=== PATIENT | male | born 1985 | race Hispanic/Latino ===

== ENCOUNTER 2018-10-08 06:06 | Day surgery (SDC) | payer OTHER, SELFPAY ==
[2018-09-24 13:57] VITALS: BMI 32.8
[2018-10-08] VITALS (28 sets, daily range): BP systolic 111–147; BP diastolic 36–103; PULSE 52–100; RESP 9–18; TEMP 36.2–37.5; O2SAT 89–99; BMI 32.8
--- NOTE | 2018-10-08 | DI.RAD.S_ITS ---
PROCEDURE: XR KNEE RT 1TO2V INDICATIONS: Opening wedge ostotomy TECHNIQUE: One operative view of the knee acquired. COMPARISON: None. FINDINGS: Bones: Tibial osteotomy with plate and screw fixation of the proximal tibia on both sides of the osteotomy. No radiographic evidence of complications. No fractures or dislocations. No suspicious bony lesions. Soft tissues: Expected intraoperative appearance. IMPRESSION: Imaging utilized during right tibial osteotomy procedure. Dictated by: Beto River M.D. on 10/08/2018 at 12:17 Approved by: Beto River M.D. on 10/08/2018 at 12:21
--- NOTE | 2018-10-08 | DI.RAD.S_ITS ---
PROCEDURE: XR KNEE RT 1TO2V INDICATIONS: OPENING WEDGE OSTEOTOMY, HIGH TIBIAL TECHNIQUE: 2 views of the knee were acquired. COMPARISON: None. FINDINGS: Bones: No fractures or dislocations. No suspicious bony lesions. There is expected postoperative appearance after opening wedge osteotomy in this patient who has postoperative changes of prior ACL. Moderate osteoarthritis at the medial compartment of the right knee is present as indicated by medial compartment joint space narrowing Soft tissues: No joint effusion. No suspicious soft tissue calcifications. IMPRESSION: Prior ACL, moderate medial compartment knee joint osteoarthritis. Expected postoperative appearance after opening wedge osteotomy proximal tibia at the metadiaphyseal junction with medial fixation plate and 4 fixation screws maintaining normal position during healing. Dictated by: Alex Cuellar M.D. on 10/08/2018 at 10:32 Approved by: Alex Cuellar M.D. on 10/08/2018 at 10:33
[2018-10-08] MEDS: CELECOXIB 200 MG CAPSULE PO (06:51)
[2018-10-08] MEDS: PREGABALIN 75 MG CAPSULE PO (06:51)
[2018-10-08] MEDS: ACETAMINOPHEN 325 MG TABLET 975 MG PO ×3 (06:51→20:57)
[2018-10-08] MEDS: LACTATED RINGERS 1,000 ML 42 ML IV ×2 (07:05→10:10)
--- NOTE | 2018-10-08 07:38 | PM.PREOP ---
Pre-operative Note Interval Note History & Physical reviewed/Exam performed by Physician: Yes Changes to H&P: No
[2018-10-08] MEDS: MIDAZOLAM 2 MG/2 ML VIAL IV (07:40)
--- NOTE | 2018-10-08 07:52 | SUR.PREOP ---
Block start time [0740] . Monitoring initiated and maintained throughout procedure. Oxygen and medications given per anesthesiologist instructions. Patient remained stable throughout procedure, no adverse reactions noted. Block end time [0748].
[2018-10-08] MEDS: CEFAZOLIN 2 GM/100 ML FROZ.PIGGY IV (07:53)
--- NOTE | 2018-10-08 08:28 | SUR.OPER ---
Supine on padded OR bed, head on pillow, arms secured on padded arm boards at <90 degrees abduction, legs uncrossed, safety belt at waist, tape over blanket over left lower leg. Right leg under control of surgeon.
[2018-10-08] MEDS: BUPIVACAINE 0.5% W/ EPI (PF) VIAL 30 ML INJ (08:40)
[2018-10-08] MEDS: HYDROMORPHONE 2 MG INJ 0.5 MG IV ×8 (09:35→11:26)
--- NOTE | 2018-10-08 09:48 | P.OP_ITS ---
Operative Date/Time/Diagnoses Date of procedure: 10/08/18 Time of procedure: 09:15 Pre-op diagnosis: Right knee osteoarthritis Post-op diagnosis: same Procedure & Clinicians Procedure: Right high tibial osteotomy Same procedure as scheduled: Yes Indications: The patient is a 32-year-old gentleman who has previously undergone an a right knee anterior cruciate ligament reconstruction. He has gone on to develop significant medial compartment post traumatic osteoarthritis. There is some arthritic change in the lateral compartment but in order to try to avoid total knee replacement he has elected to proceed with a high tibial osteotomy to transfer the weight to the lateral compartment. He has agreed to this procedure after discussion the risks benefits and alternatives. Risks discussed included but were not limited to: Failure to relieve pain, nerve or significant vascular damage, infection, failure of healing of the osteotomy, stiffness, deep venous thrombosis, pulmonary embolism, stroke, myocardial infarction, permanent paralysis and . Surgeon: Isidro Walters Pinking Sewing Machine Operator: Hanna Chavira Click Yes if Unassisted: No Anesthesia Type: General, Peripheral nerve block and Local Operative Notes Findings: Appropriate transfer of weight-bearing line into the medial 3rd of the lateral compartment Closure Type: primary Specimen(s): none sent Prosthetic devices, grafts, tissues, transplants, or devices: Arthrex 12.5 mm opening wedge osteotomy plate with 4 Synthes large fragment cortical screws. Osferon bone substitute wedges. Applied: implant(s) Estimated Blood Loss (mL): 50 Blood products transfused: platelets Tourniquet time (min): 46 Procedure in detail: The patient was seen the preoperative area where he identified the right knee as the operative site and this was marked with my initials. He received preoperative antibiotics in and regional nerve block. He was then taken to the operating room and placed on the operating room table in the supine position where he underwent a general anesthetic. A tourniquet was placed about his proximal right thigh. His right leg was prepared from the toes to the tourniquet with ChloraPrep and drape through sterile drapes. A part time receptionist-out was performed prior to prepping and draping. In addition we confirmed that we could see from the hip joint to the ankle with fluoroscopy prior to draping. The leg was elevated and exsanguinated with the Esmarch bandage and the tourniquet inflated to 250 mm of mercury. An approximately 8 cm incision was created over the proximal medial tibia including the prior ACL scar. This was carried to the periosteum which was elevated from the bone with electrocautery. Using fluoroscopic guidance the cutting guide was placed angling the cut from the middle of the tibial tubercle up towards the fibular head laterally. The cutting guide was placed parallel to the tibial plateau. Retractors were placed anterior and posterior to the anticipated cutting line and the oscillating saw used to initiate the osteotomy. This was taken about 3[address] the tibia. The osteotomy was then completed using osteotomes. I did attempt to leave a lateral hinge intact. A 2nd osteotome was placed and Junaid screw kym device used to open the osteotomy. The angulation of the leg was monitored in real-time on fluoroscopy using a Bovie cord stretched between the center of the femoral head and the middle of the ankle. Once the weight-bearing line appeared to be at the junction of the lateral and middle thirds of the tibial plateau distraction was discontinued. The measuring wedges were placed and this was a 12.5 mm opening and that plate was selected and applied to the lateral aspect of the tibia with fluoroscopic guidance to confirm the length of the screws. While we had been performing the osteotomy the patient's autologous blood was drawn by the anesthesiologist and the Arthrex ACP system was used to concentrate platelet rich plasma. This was applied over 2 Osferon bone substitute wedges. After fixation of the osteotomy the wedges were placed in the defect in the medial tibia. The remaining platelet rich plasma was then injected into the defect. The periosteum was then closed with 0 Vicryl. There was a small gap in the periosteum anteriorly at due to the opening from the osteotomy. The tourniquet was then deflated for total tourniquet time of 46 minutes. Hemostasis in the superficial tissues was obtained with electrocautery. There was no evidence for pulsatile bleeding to suggest arterial injury. The wound was then closed with interrupted 3 O Vicryl in the subcutaneous layer followed by a running subcuticular 3 0 V lock suture and Dermabond. A dressing of an Aquacel dressing and an Junaid wrap was applied. The patient was transferred to the recovery room in good condition having tolerated the procedure well. Complications: none Condition: stable Disposition: PACU Plan for aftercare: The patient will be maintained nonweightbearing on crutches for 6 weeks. We will monitor his healing on x-rays. He will be maintained in the hospital for observation although he may be discharged later today if he is comfortable.
[2018-10-08] MEDS: hydrOXYzine 50 MG/ML INJ 25 MG IM (09:49)
[2018-10-08] MEDS: HYDROMORPHONE 2 MG INJ 1 MG IV ×2 (10:06→10:16)
[2018-10-08] MEDS: OXYCODONE IR 5 MG TABLET PO ×3 (10:14→14:53)
[2018-10-08] MEDS: LORazepam 2 MG/ML INJ 0.5 MG IV (10:35)
--- NOTE | 2018-10-08 10:40 | SUR.PHASEI ---
bedside report given to JAYDA Osorio. pt in stable condition, vss. transferred care of pt to JAYDA Osorio at this time.
--- NOTE | 2018-10-08 10:43 | P.PCN_ITS ---
Procedures Date/Time Date of procedure: 10/08/18 Time of procedure: 07:42 Nerve Block Time out performed: Yes Local anesthetic used: lidocaine 1% (w/ epi 5mL + 15mL 0.5opivacaine) Location of anesthetic used: adductor canal Amount of anesthesia used (mL): 20 Nerve blocks: femoral (adductor canal) Procedure successful: Yes Patient tolerated procedure: well Complications: none Additional comments: Adductor canal block for post operative pain management. R/B discussed. Site marked. Consent verified/signed. Standard ASA monitors. NC O2. Chloroprep. Sterile technique. Femoral A/V/N identified medial mid thigh with US. Lidocaine skin wheal. 100mm x 21g Pajunk needle advanced with in-plane US guidance. Negative aspiration. LA injected medial and lateral to femoral artery. Negative aspiration throughout. No pain, no paresthesia with injection. VSS. Tolerated well. To OR.
--- NOTE | 2018-10-08 10:45 | P.PCN_ITS ---
Procedures Date/Time Date of procedure: 10/08/18 Time of procedure: 10:00 Nerve Block Time out performed: Yes Local anesthetic used: lidocaine 1% (5mL + 10mL 0.5opivacaine) Location of anesthetic used: adductor canal Amount of anesthesia used (mL): 20 Nerve blocks: femoral (adductor canal) Procedure successful: Yes Patient tolerated procedure: well Complications: none Additional comments: Adductor canal block for post operative pain management. R/B discussed. Site marked. Consent verified/signed. Standard ASA monitors. NC O2. Chloroprep. Sterile technique. Femoral A/V/N identified medial mid thigh with US. Lidocaine skin wheal. 100mm x 21g Pajunk needle advanced with in-plane US guidance. Negative aspiration. LA injected medial and lateral to femoral artery. Negative aspiration throughout. No pain, no paresthesia with injection. VSS. Tolerated well. To OR.
--- NOTE | 2018-10-08 10:55 | SUR.PHASEI ---
Continues to be very uncomfortable, sighs, grasping leg, expresses appreciation for Rx and other efforts to relieve pain.
--- NOTE | 2018-10-08 10:58 | SUR.PHASEI ---
Pari Massey RN resumed care.
--- NOTE | 2018-10-08 11:06 | SUR.PHASEI ---
assumed care of pt at 1100. pt in stable condition, vss.
--- NOTE | 2018-10-08 11:47 | SUR.PHASEI ---
Report called to JAYDA Amin on acute care floor. pt in stable condition, vss. iv site clear and infusing without difficultly. Drsg observed to be c/d/i. pt being transferred to acute care floor at this time. pt denies any nausea and states pain is tolerable at this time.
--- NOTE | 2018-10-08 12:01 | SUR.PHASEI ---
pt being transferred to acute care floor at this time by JAYDA Giron. Pt left in pacu in stable condition, vss.
--- NOTE | 2018-10-08 12:52 | PC.NURSE ---
Addendum entered by Georgina Lizama R.N. 10/08/18 14:59: PAIN - states rle discomfort 7 on scale 0/10, given scheduled tylenol and 5mg po oxycodone with juice and crackers. Addendum entered by Georgina Lizama R.N. 10/08/18 12:53: POST OP ARRIVAL - 02 SAT 98%, bs clear, hr 88, scd on, ice pack to r knee, denies nausea. Original Note: POST OP ARRIVAL - alert, states pain has improved since earlier conversation with pacu, now 4 on scale 0/10, +cms feet, wiggles toes, aquacell w/christian wrap over cdi, 02 at
[2018-10-08] MEDS: LACTATED RINGERS 1,000 ML 125 ML IV ×2 (13:04→20:58)
--- NOTE | 2018-10-08 13:17 | PT.IPTN ---
Current Diagnoses Unilateral post-traumatic osteoarthritis, right knee (10/08/18) Surgery Performed Operation Date: 10/08/18 07:45 Actual Procedures p Opening wedge osteotomy, high tibial(Right) - Isidro Walters MD Physical Therapy Treatment Note M3 PT-IP Subjective Start: 10/08/18 12:54 Freq: NEEDED Status: Active Protocol: Document 10/08/18 13:16 RS (Rec: 10/08/18 13:17 RS [id number]) Subjective Physical Therapy Visit Type Type Administrative Note Notes Per RN pt only go to floor 10 minutes ago, not yet ready to participate in therapy assessment.
[2018-10-08] MEDS: HYDROMORPHONE 0.5 MG INJ IV ×3 (16:40→23:42)
[2018-10-08] MEDS: hydrOXYzine pamoate 25 MG CAPSULE PO ×2 (16:42→22:48)
--- NOTE | 2018-10-08 17:03 | PC.NURSE ---
Addendum entered by Lamar Gilbert R.N. 10/08/18 22:21: Reports better pain control since Oxycodone increased to 10mg. Medicated with oxycodone for pain 4/10 and increasing to right knee. Requested SCD's off for last couple hours, now requesting them put back on. CMS intact, drsg remains CDI. Ice packs to knee. Family at bedside. Original Note: Evening note: Dustin resting in bed, denies numbness to extremities, does report increasing pain to right knee 6/10. Due to pain control issues previously today, I administered Dilaudid 0.5 mg IV with plan to medicate patient with full dose of oxycodone 10 mg when next due again, as he said that 5 mg was not enough. Also given Vistaril 25 mg PO. CMS intact. Bulky drsg to right knee CDI, fresh ice packs applied. Wearing bilateral SCD's. P.T. now in to mobilize patient. Family at bedside. Instructed patient to call for any needs/concerns, fall precautions are in place.
--- NOTE | 2018-10-08 17:32 | PT.IIE ---
Current Diagnoses Unilateral post-traumatic osteoarthritis, right knee (10/08/18) Surgery Performed Operation Date: 10/08/18 07:45 Actual Procedures p Opening wedge osteotomy, high tibial(Right) - Isidro Walters MD Surgical History (Last Updated 09/24/18 @ 14:06 by Shilpa Barba, RN) Hx of arthroscopy of right knee (Acute) Medical History (Last Updated 09/24/18 @ 14:06 by Shilpa Barba, RN) Depression (Acute) Physical Therapy Inpatient Evaluation/Re-Eval M1 PT/OT-IP Prior Functional Status Start: 10/08/18 12:54 Freq: NEEDED Status: Active Protocol: Document 10/08/18 16:50 DCW (Rec: 10/08/18 17:32 DCW [id number]) Medical Review Prior Functional Status Medical History Reviewed Yes Diet/Fluid Consistency Regular Mobility and Gait Independent Social History Household Members significant other children Living Arrangements Apartment/Condo Number of Floors (Floors) Two Floors Number of Stairs To Enter/Railing? 14 TALITA, R railing ascending Home Equipment Crutches M2 PT-IP Current Condition Start: 10/08/18 12:54 Freq: NEEDED Status: Active Protocol: Document 10/08/18 16:50 DCW (Rec: 10/08/18 17:32 DCW [id number]) Physical Therapy Current Condition Current Condition Evaluation Date 10/08/18 Treatment Diagnosis Right high tibial osteotomy Onset Date 10/08/18 Weight Bearing Status Weight Bearing Status Non-Weight Bearing Allowed Weight Bearing Amount (enter % Non-weightbearing for 6 weeks or #) (%) post-op M3 PT-IP Subjective Start: 10/08/18 12:54 Freq: NEEDED Status: Active Protocol: Document 10/08/18 16:50 DCW (Rec: 10/08/18 17:32 DCW [id number]) Subjective Physical Therapy Visit Type Type Initial Evaluation Visit Start Time 16:50 Visit Stop Time 17:12 Total Visit Minutes 22 Notes Pt reclined in bed day-of surgery, s/p Right high tibial osteotomy following failure of conservative treatment. Pt reporting pain 7-8/10. Pt has just received pain meds from nursing, reports he is in too much pain to do anything, but is willing to try to at least get up. Number of ASSESSOR Visits 0 Physical Therapy Visit Comments Patient Comments The pain has really started getting bad recently. Therapy Pain Assessment Pain When Pain Assessed At Rest Pain Present Pain Present Pain Reported Location Right Knee Intensity 8 Scale Used Numeric (1 - 10) Pain Management Techniques Apply Cold Timing of Activity with Medications M4 PT-IP Mobility and Gait Start: 10/08/18 12:54 Freq: NEEDED Status: Active Protocol: Document 10/08/18 16:50 DCW (Rec: 10/08/18 17:32 DC [id number]) PT-Bed Mobility Assessment Rolling Type of Rolling Roll to Left Level of Assist Independent Supine to Sit Supine to Sit Independent Sit to Supine Sit to Supine Independent Scooting Scooting to Edge of Bed Independent PT-Transfer Assessment Sit to and From Stand Sit to and from Stand Standby Assistance Equipment Transfer Assistive Device Bed Rail Axillary Crutches Orthotic/Prosthetic Devices or Brace: No Gait Assessment Comments Gait Comments Gait not tested at this time, pt c/o too much pain Stair Climbing Assessment Comments Stair Climbing Comments Stairs not tested at this time , pt c/o too much pain PT-Balance Assessment Sitting Balance and Reactions Static Sitting Balance Ability Normal Dynamic Sitting Balance Ability Normal Standing Balance and Reactions Static Standing Balance Ability Good M5 PT-IP Objective Assessments Start: 10/08/18 12:54 Freq: NEEDED Status: Active Protocol: Document 10/08/18 16:50 DCW (Rec: 10/08/18 17:32 [facility] [id number]) Orientation Orientation/Cognition Level of Alertness Alert Orientation Name Age Birthday Month Date Year Day of Week Place Situation Language Function Ability No Deficits Noted Safety Awareness Understands Safety Issues Memory Description No Deficits Noted Gross Range of Motion Lower Extremity ROM Assessment Right Impaired Impairments Greatly restricted flexion/ extension of R knee due to post-op pain and bandaging Strength Lower Extremity Strength Assessment Right Impaired Knee 3/5 Comments Strength Comments Formal MMT not performed due to pain, pt able to SLR against gravity. M6 PT-IP Treatment Start: 10/08/18 12:54 Freq: NEEDED Status: Active Protocol: Document 10/08/18 16:50 DCW (Rec: 10/08/18 17:32 DCW [id number]) Physical Therapy Treatment Other Treatments Other Treatment Performed Reviewed Ankle pumps, SAQ, SLR , Heel Slides from post-op exercise packet M7 PT-IP Assessment and Plan Start: 08/12/19 12:54 Freq: NEEDED Status: Active Protocol: Document 10/08/18 16:50 DCW (Rec: 10/08/18 17:32 DCW [id number]) PT Summary Assessment and Plan Potential Rehabilitation Potential Excellent Status of Condition at Evaluation Stable Summary Impairments Pain ROM Strength Balance Gait Activity Tolerance Assessment Summary Pt is a 32 year old male day- of surgery following right high tibial osteotomy. Pt is having difficulty with pain- control at the moment, and therefore gait and stairs were not tested at this time. Pt does have experience with crutch ambulation, and demonstrated independent bed mobility and transfers. Pt will likely be cleared for home with demonstration of safe gait and stair technique, hopefully when his pain is better controlled. Goals Gait Goal Independent Crutches Gait Distance 50' Other Goals Ascend/Descend 10 stairs /c crutches SBA Days to Meet Goals 2 Frequency of Treatment Frequency Of Treatment Twice a Day Treatment Plan Physical Therapy Treatment Plan Gait Training Therapeutic Exercise Other Recommendations and Next Treatment Gait, stairs, post-op knee Focus exercises Recommendations To Nursing Amount of Assist Needed Standby Assistance Discharge Recommendations PT Discharge Recommendations Home
[2018-10-08] MEDS: OXYCODONE IR 10 MG TABLET PO ×2 (17:34→20:57)
[2018-10-08] MEDS: ASPIRIN EC 81 MG TABLET PO (20:57)
[2018-10-08] MEDS: DOCUSATE 100 MG CAPSULE PO (20:58)
[2018-10-09] MEDS: OXYCODONE IR 10 MG TABLET PO ×4 (01:11→12:00)
[2018-10-09] MEDS: HYDROMORPHONE 0.5 MG INJ IV ×2 (02:28→04:17)
--- NOTE | 2018-10-09 04:28 | PC.NURSE ---
Pt VSS, lung sounds clear bilaterally, denies nausea. Pt is having pain control issues. We have had to medicate w/ Q 1 dilaudid 0.5, and Q4 Oxycodone 10mg. This combination does not seem to be making much of a difference. Pt still states he is 7-8/10. Need to call doc in the AM for possible dose change of medication.
[2018-10-09 04:37] VITALS: BP 122/71; PULSE 61; RESP 18; TEMP 36.8; O2SAT 96
[2018-10-09 05:23] LABS: Hematocrit 41.5 % (41-53); Hemoglobin 13.8 g/dL (13.5-17.5)
[2018-10-09 07:30] VITALS: BP 140/75; PULSE 67; RESP 16; TEMP 37.2; O2SAT 98
--- NOTE | 2018-10-09 07:44 | PM.DS.1 ---
History of Present Illness Date Patient Seen: 10/09/18 Time Patient Seen: 07:45 Chief complaint: *[id number] Narrative: The history and physical examination are contained in the chart previously completed note. Please refer to that note for this information. Discharge Providers Discharge Date: 10/09/18 Primary care physician: Rogerio Hendrix MD Consults: 10/08/18 12:29 Consult to Discharge Planning Routine Comment: Consult to Physical Therapy Evaluate & Treat Comment: Physician Instructions: postop TKA protocol Discharge provider: Isidro Walters MD Summary Discharge Diagnosis: 1. Osteoarthritis right knee Hospital Course: Patient was admitted to the hospital and taken directly to the operating room on October 08, 2018. He underwent a high tibial osteotomy on the right. He was stable postoperatively but his course was marked by marginal pain control. On postoperative day 1 it was felt he was ready for discharge home with nonweightbearing with crutches for protection. Status at Discharge Cognitive/behavioral status at discharge: oriented Functional status at discharge: uses cane/walker Overall status at discharge: patient is progressing back to baseline Time Spent with Patient Less than 30 minutes Exam Vital Signs (past 8 hours): - 10/09/18 04:37 Temperature 98.2 F Pulse Rate 61 Respiratory Rate 18 Blood Pressure 122/71 Pulse Oximetry 96 Oxygen Delivery Method Room Air Oxygen Flow Rate 0 Narrative Exam Narrative: The right knee wound is dressed with no drainage on the bandage. Calf is soft. Light touch and motion are intact in the right lower extremity. Objective Labs Result Diagrams: 10/09/18 04:55 Labs: Laboratory Results - last 24 hr 10/09/18 04:55 Hgb 13.8 Hct 41.5 Discharge Plan Discharge Plan Patient Disposition: Home Discharge Med Rec/Prescriptions Prescriptions: New acetaminophen 325 mg Tablet 975 mg PO TID 30 Days Qty: 270 RF: 0 aspirin 81 mg Tablet,Delayed Release (Dr/Ec) 81 mg PO BID 42 Days Qty: 84 RF: 0 oxycodone 5 mg Tablet 5 mg PO Q3HR PRN (Reason: Pain, Moderate (4-6)) Qty: 60 RF: 0 hydroxyzine pamoate 25 mg Capsule 25 mg PO Q6HR PRN (Reason: Nausea) Qty: 40 RF: 0 Follow up/Referrals: Isidro Walters MD [Physician] - 2 Weeks Rogerio Hendrix MD [Primary Care Provider] - Discharge Orders: Discharge (Order); Ordered 10/09/18 Ordered By: Isidro Walters Provider Discharge Instructions Diet: Diet as Tolerated and Regular Activity: Use crutches to walk. Do not put weight on your right foot for 6 weeks. Cold/Heat Therapy: Apply ice as needed for pain to the right knee for 15 minutes every hour. Skin/Wound/Dressing Care Report to your healthcare provider any signs of infection, such as:: chills, fever, night sweats, increased pain, unusual drainage and unusual redness Dressing: You may remove the Junaid wrap in 3 days after surgery and take a shower normally. Leave the deeper dressing in place. This will be removed at your 1st follow-up. If the central strip of the deep dressing becomes saturated with either water or blood please call the office. Visit Report/Discharge Packet Stand Alone Forms: Surgery Discharge Discharge Data Primary Care Provider: Rogerio Hendrix Attending Provider: Isidro Walters Quality VTE Deep Vein Thrombosis/Pulmonary Embolism Present on Admission: No
[2018-10-09] MEDS: MELOXICAM 7.5 MG TABLET 15 MG PO (08:51)
[2018-10-09] MEDS: ACETAMINOPHEN 325 MG TABLET 975 MG PO (08:51)
[2018-10-09] MEDS: DOCUSATE 100 MG CAPSULE PO (08:51)
[2018-10-09] MEDS: ASPIRIN EC 81 MG TABLET PO (08:51)
--- NOTE | 2018-10-09 10:28 | PT.IPTN ---
Current Diagnoses Unilateral post-traumatic osteoarthritis, right knee (10/08/18) Surgery Performed Operation Date: 10/08/18 07:45 Actual Procedures p Opening wedge osteotomy, high tibial(Right) - Isidro Walters MD Physical Therapy Treatment Note M2 PT-IP Current Condition Start: 10/08/18 12:54 Freq: NEEDED Status: Active Protocol: Document 10/08/18 16:50 DCW (Rec: 10/08/18 17:32 DCW [id number]) Physical Therapy Current Condition Current Condition Evaluation Date 10/08/18 Treatment Diagnosis Right high tibial osteotomy Onset Date 10/08/18 Weight Bearing Status Weight Bearing Status Non-Weight Bearing Allowed Weight Bearing Amount (enter % Non-weightbearing for 6 weeks or #) (%) post-op M3 PT-IP Subjective Start: 10/08/18 12:54 Freq: NEEDED Status: Active Protocol: Document 10/09/18 09:55 CLB (Rec: 10/09/18 10:28 CLB [id number]) Subjective Physical Therapy Visit Type Type Treatment Note Visit Start Time 09:55 Visit Stop Time 09:15 Total Visit Minutes 20 Number of [employer] Visits 1 Physical Therapy Visit Comments Patient Comments Pt states pain meds haven't lowered the pain much. Patient Goals go home today Therapy Pain Assessment Pain When Pain Assessed At Rest Pain Present Pain Present Pain Reported Location Right Knee Intensity 7 Scale Used Numeric (1 - 10) Pain Management Techniques Apply Cold Timing of Activity with Medications M4 PT-IP Mobility and Gait Start: 10/08/18 12:54 Freq: NEEDED Status: Active Protocol: Document 10/09/18 09:55 CLB (Rec: 10/09/18 10:28 CLB [id number]) PT-Transfer Assessment Sit to and From Stand Sit to and from Stand Standby Assistance Equipment Transfer Assistive Device Gait Belt Axillary Crutches Orthotic/Prosthetic Devices or Brace: No Transfers Transfer Destination Chair Wheelchair Transfer Technique Stand Step Pivot Transfer Ability Level of Assist Standby Assistance Comments Mobility Comments Pt able to get to EOB Independently and sit<>stand SBA. Gait Assessment Gait Gait Assistance Required: Contact Guard Assist Distance (Feet) 100 Able to Maintain Weight Bearing Status Yes During Gait Assistive Devices Assistive Device Gait Belt Axillary Crutches Orthotic/Prosthetic Devices or Brace: No Factors Limiting Gait Function Factors Limiting Gait Function Decreased Activity Tolerance Decreased Strength Limited Range of Motion Pain Poor Balance Comments Gait Comments Pt able to ambulate ~100ft with crutches while family member assisted with CGA. Stair Climbing Assessment Evaluation Level of Assist On Stairs Contact Guard Assistance 1 Person Assistance Devices Stair Climbing Assistive Devices Axillary Crutches Left Railing Technique/Endurance Stair Climbing Direction Ascend and Descend Stair Climbing Technique Step to Step Number of Steps Climbed 3 Stair Climbing Set # Repetitions (reps) 2 Comments Stair Climbing Comments Pt able to climb steps with CGA of family member. Pt will stay in downstairs appt with family for the first few days before climbing stairs to his appt. M5 PT-IP Objective Assessments Start: 10/08/18 12:54 Freq: NEEDED Status: Active Protocol: Document 10/08/18 16:50 DCW (Rec: 10/08/18 17:32 DCW [id number]) Orientation Orientation/Cognition Level of Alertness Alert Orientation Name Age Birthday Month Date Year Day of Week Place Situation Language Function Ability No Deficits Noted Safety Awareness Understands Safety Issues Memory Description No Deficits Noted Gross Range of Motion Lower Extremity ROM Assessment Right Impaired Impairments Greatly restricted flexion/ extension of R knee due to post-op pain and bandaging Strength Lower Extremity Strength Assessment Right Impaired Knee 3/5 Comments Strength Comments Formal MMT not performed due to pain, pt able to SLR against gravity. M6 PT-IP Treatment Start: 10/08/18 12:54 Freq: NEEDED Status: Active Protocol: Document 10/09/18 09:55 CLB (Rec: 10/09/18 10:28 CLB [id number]) Physical Therapy Treatment Other Treatments Other Treatment Performed Reviewed Ankle pumps, SAQ, SLR , Heel Slides from post-op exercise packet M7 PT-IP Assessment and Plan Start: 10/08/18 12:54 Freq: NEEDED Status: Active Protocol: Document 10/09/18 09:55 CLB (Rec: 10/09/18 10:28 CLB [id number]) PT Summary Assessment and Plan Potential Rehabilitation Potential Excellent Status of Condition at Evaluation Stable Summary Impairments Pain ROM Strength Balance Gait Activity Tolerance Assessment Summary Pt continues to c/o high pain but was able to ambulate ~ 100ft CGA and crutches. Pt able to climb steps CGA. Pt will be able to go home with assist of family when medically stable. Goals Gait Goal Independent Crutches Gait Distance 50' Other Goals Ascend/Descend 10 stairs /c crutches SBA Frequency of Treatment Frequency Of Treatment Twice a Day Recommendations To Nursing Amount of Assist Needed Standby Assistance Discharge Recommendations PT Discharge Recommendations Home
--- NOTE | 2018-10-09 11:39 | CM.DANOTE ---
DCP Brief Assessment Patient is a 32 year old male who was admitted on 10/08/18 for Knee Surgery. Pt has L&I for insurance and his PCP is Dr. Hendrix. EMR was reviewed. Per Ortho MD, pt stable for d/c home with family support after further PT today and no identified barriers to discharge. Per RN, pt was having pain control issues last night but reports no real pain today and seemed well managed now. Per PT, pt is active and independent at baseline and pt completed stairs and CG training and recommending safe d/c home to parent's house before going upstairs to his own apartment. Plan: Patient to d/c home today via family POV and No SW needs at this time. ABIMAEL Hutson
[2018-10-09] MEDS: hydrOXYzine pamoate 25 MG CAPSULE PO (12:00)
--- NOTE | 2018-10-09 12:04 | PC.NURSE ---
Day shift: Pt left unit at approx 1200. Taken out to private car in . Pt's sister will drive him home to [place]. Paperwork signed and all questions answered. Pt has MD [facility]ays and all personal belongings. Medicated for pain and car ride home just prior to d/c.
== END 2018-10-09 12:07 | disposition home or self-care (01) ==
LOC: OR 06:13 → AC 06:22
PROVIDERS: PCP Preventive Medicine Occupational Medicine; Visit Provider Orthopaedic Surgery
PROC: 0SRC0JZ Replacement of Right Knee Joint with Synthetic Substitute, Open Approach (ICD-10-PCS; CPT 27447; principal; 2018-10-08 07:45)
DX: M17.31 Unilateral post-traumatic osteoarthritis, right knee (principal); G89.18 Other acute postprocedural pain
CPT/HCPCS: 27705; 36415; 64450; 73560; 76000; 85014; 85018; 97116; 97161; J0690; J1100; J1170; J2060; J2250; J2405; J2704; J3010; J3410